=== PATIENT | female | born 1950 | race Caucasian/White ===

== ENCOUNTER → 2018-05-13 08:21 | Outpatient (CLI) | payer MEDICARE, SELFPAY ==
--- NOTE | 2018-05-13 | DI.MG.S_ITS ---
BILATERAL DIGITAL SCREENING MAMMOGRAM 3D/2D WITH CAD: 05/13/2018 CLINICAL: Routine screening. Family history of breast cancer. Comparison is made to exams dated: 04/29/2017 mammogram, 04/16/2016 mammogram, and 04/11/2015 mammogram - [facility]. There are scattered fibroglandular elements in both breasts. Current study was also evaluated with a Computer Aided Detection (CAD) system. No significant masses, calcifications, or other findings are seen in either breast. There has been no significant interval change. IMPRESSION: NEGATIVE There is no mammographic evidence of malignancy. A 1 year screening mammogram is recommended. This exam was interpreted at Station ID: [id number]. NOTE: For mammograms, a report in lay terms will be sent to the patient. Approximately 15% of breast malignancies will not be visualized mammographically. In the management of a palpable breast mass, a negative mammogram must not discourage biopsy of a clinically suspicious lesion. Electronically Signed By: Ashish [email or web address]:05/14/2018 16:48:19 letter sent: Normal Exam ACR BI-RADS Category 1: Negative 3341F
== END ==
PROVIDERS: Visit Provider Family Medicine
DX: Z80.3 Family history of malignant neoplasm of breast (principal)
CPT/HCPCS: 77063; 77067

== ENCOUNTER 2019-04-06 08:42 | Day surgery (SDC) | payer MEDICARE, SELFPAY ==
[2019-04-06] MEDS: SODIUM CHLORIDE 0.9% 1,000 ML 200 ML IV (09:00)
[2019-04-06 09:05] VITALS: BP 126/93; PULSE 87; RESP 16; TEMP 36.6; O2SAT 100; BMI 24.2
--- NOTE | 2019-04-06 10:30 | PM.HP.1 ---
History of Present Illness Date Patient Seen: 04/06/19 Time Patient Seen: 10:30 Chief complaint: [id number] Narrative: The patient is a woman here for a screening colonoscopy. This is her 1st exam. Patient History Medical History (Updated 04/06/19 @ 10:31 by Nabor Kothari MD) Glaucoma (Chronic) Surgical History (Updated 04/06/19 @ 10:31 by Nabor Kothari MD) H/O tubal ligation (Acute) Family History Father Melanoma Atrial fibrillation Mother Breast cancer Stroke Atrial fibrillation Grandmother Diabetes mellitus Sister Age: 65 [place] Social History household members: spouse Family & Social History Family History Father Melanoma Atrial fibrillation Mother Breast cancer Stroke Atrial fibrillation Grandmother Diabetes mellitus Sister Age: 65 [place] Social History: household members spouse Meds Home Medications Medication Instructions Recorded Confirmed Type CALCIUM CARBONATE/VITAMIN D3 1 tab PO Q DAY #0 03/20/11 04/06/19 History (Calcium 500 + D Tablet) Fish Oil 3,000 mg PO Q DAY #0 03/20/11 04/06/19 History Lutein (#LUTEIN) 20 mg PO Q DAY #0 03/20/11 04/06/19 History fluticasone propionate 2 spray INTRANASAL QDAY #16 gm 04/30/17 04/06/19 Rx prednisone 20 mg PO BID #10 tab 05/01/17 04/06/19 Rx Allergies Allergy/AdvReac Type Severity Reaction Status Date / Time ENVIRONMENTAL ALLERGIES Allergy Mild NASAL Uncoded 04/06/19 09:06 RHINITIS, SNEEZING, POST NASAL DRIP Review of Systems Review of Systems All systems reviewed & are unremarkable except as noted in HPI and below Eyes Comments: Uses eyedrops for glaucoma Exam Vital Signs (past 8 hours): - 04/06/19 09:05 Temperature 97.9 F Pulse Rate 87 Respiratory Rate 16 Blood Pressure 126/93 H Pulse Oximetry 100 Oxygen Delivery Method Room Air Narrative Exam Narrative: Pleasant cooperative patient no apparent distress. Lungs are clear to auscultation. No rales or rhonchi. Heart regular rate and rhythm no murmur gallop. Abdomen is soft nontender without mass. No obvious hernias. Patient is alert and oriented x3. Assessment & Plan Assessment & Plan narrative: The patient for a screening colonoscopy. I have discussed the procedure with them. Risks of bleeding, perforation which would necessitate major operation, failure to find remove all lesions, the potential tattoo were all discussed. All questions were answered. They wished to proceed.
--- NOTE | 2019-04-06 10:46 | PM.PREOP ---
Pre-operative Note Interval Note History & Physical reviewed/Exam performed by Physician: Yes Changes to H&P: No ASA Class (for procedural sedation): I
--- NOTE | 2019-04-06 10:54 | SUR.OPER ---
GLASSES TO PACU IN LABELED BAG WITH PATIENT
[2019-04-06] MEDS: MIDAZOLAM 5 MG/5 ML VIAL IV (10:56)
[2019-04-06] MEDS: fentaNYL 250 MCG/5 ML INJ IV (10:57)
[2019-04-06 11:19] VITALS: BP 91/61; PULSE 70; RESP 11; TEMP 36.1; O2SAT 98
--- NOTE | 2019-04-06 11:20 | PM.OP.ENDO ---
Operative Date/Time/Diagnoses Date of procedure: 04/06/19 Time of procedure: 11:20 Pre-op diagnosis: Screening exam. This is her 1st colonoscopy. Post-op diagnosis: same (Sigmoid diverticulosis. Skin tag of the anus.) Procedure & Clinicians Study performed: Colonoscopy Same procedure as scheduled: Yes Indications: Screening for colon cancer Surgeon: Nabor Kothari Procedure Notes SCOAP/Timeout: Performed Procedure in detail: The patient was placed in the left lateral decubitus position and underwent IV sedation directed by the surgeon consisting of fentanyl and Versed. Digital exam was[]. The scope was inserted and advanced through the rectum into the sigmoid, descending, transverse, and ascending colon.[]. The cecum was reached identified by the ileocecal valve and the appendiceal opening. The ileocecal valve was[] cannulated. The terminal ileum was normal in appearance. The scope was gradually brought out. Polyps were found at[]. The scope ultimately was retroflexed in the rectum. The appearance was[]. The scope was removed and the patient tolerated the procedure well. Scope withdrawal time: 9.5 minutes Sedation minutes: 25 Findings: diverticulosis (Sigmoid) Specimen(s): none sent Complications: none Recommendations: Colonscopy in 10 years Follow up: as needed Disposition: PACU
[2019-04-06 11:24] VITALS: BP 98/67; PULSE 71; RESP 11; O2SAT 98
[2019-04-06 11:29] VITALS: BP 99/61; PULSE 87; RESP 15; O2SAT 98
[2019-04-06 11:47] VITALS: BP 120/69; PULSE 86; RESP 16; O2SAT 98
== END 2019-04-06 11:48 | disposition home or self-care (01) ==
PROVIDERS: PCP Nurse Practitioner Family; Visit Provider Specialist
PROC: 0DJD8ZZ Inspection of Lower Intestinal Tract, Via Natural or Artificial Opening Endoscopic (ICD-10-PCS; CPT 45378; principal; 2019-04-06 09:45)
DX: Z12.11 Encounter for screening for malignant neoplasm of colon (principal); K57.30 Diverticulosis of large intestine without perforation or abscess without bleeding
CPT/HCPCS: G0121; 99152; J2250; J3010

== ENCOUNTER → 2019-06-30 08:59 | Outpatient (CLI) | payer MEDICARE, SELFPAY ==
--- NOTE | 2019-06-30 | DI.MG.S_ITS ---
BILATERAL DIGITAL SCREENING MAMMOGRAM 3D/2D WITH CAD: 06/30/2019 CLINICAL: Routine screening. Family history of breast cancer. Comparison is made to exams dated: 05/13/2018 mammogram, 04/29/2017 mammogram, 04/16/2016 mammogram, 04/11/2015 mammogram, 03/31/2014 mammogram, and 03/01/2013 mammogram - [facility]. There are scattered fibroglandular elements in both breasts. Current study was also evaluated with a Computer Aided Detection (CAD) system. No significant masses, calcifications, or other findings are seen in either breast. There has been no significant interval change. IMPRESSION: NEGATIVE There is no mammographic evidence of malignancy. A 1 year screening mammogram is recommended. This exam was interpreted at Station ID: [id number]. NOTE: For mammograms, a report in lay terms will be sent to the patient. Approximately 15% of breast malignancies will not be visualized mammographically. In the management of a palpable breast mass, a negative mammogram must not discourage biopsy of a clinically suspicious lesion. Electronically Signed By: Tanner [email or web address]:06/30/2019 19:34:37 letter sent: Normal Exam ACR BI-RADS Category 1: Negative 3341F
== END ==
PROVIDERS: PCP Nurse Practitioner Family; Visit Provider Nurse Practitioner Family
DX: Z12.31 Encounter for screening mammogram for malignant neoplasm of breast (principal); Z80.3 Family history of malignant neoplasm of breast
CPT/HCPCS: 77063; 77067

== ENCOUNTER → 2020-07-05 09:02 | Outpatient (CLI) | payer MEDICARE, SELFPAY ==
--- NOTE | 2020-07-05 09:16 | DI.MG.S_ITS ---
Patient Name: ANDIE CHOWDARY date: 1950 Sex: F Attending Physician: Antonio Indications: Date: 07/05/2020 09:10 At the request of: WAYNE WELCH Procedure: MM screening mammo BI BILATERAL DIGITAL SCREENING MAMMOGRAM 3D/2D WITH CAD: 07/05/2020 CLINICAL: Routine screening. Family history of breast cancer. Comparison is made to exams dated: 06/30/2019 mammogram, 05/13/2018 mammogram, and 04/29/2017 mammogram - [facility]. There are scattered fibroglandular elements in both breasts. Current study was also evaluated with a Computer Aided Detection (CAD) system. No significant masses, calcifications, or other findings are seen in either breast. There has been no significant interval change. IMPRESSION: NEGATIVE There is no mammographic evidence of malignancy. A 1 year screening mammogram is recommended. This exam was interpreted at Station ID: [id number]. NOTE: For mammograms, a report in lay terms will be sent to the patient. Approximately 15% of breast malignancies will not be visualized mammographically. In the management of a palpable breast mass, a negative mammogram must not discourage biopsy of a clinically suspicious lesion. Electronically Signed By: Brian Coronel M.D., [email or web address]/[email or web address]:07/05/2020 09:26:07 letter sent: Normal Exam ACR BI-RADS Category 1: Negative 3341F
== END ==
PROVIDERS: PCP Nurse Practitioner Family; Referring Provider Nurse Practitioner Family; Visit Provider Nurse Practitioner Family
DX: Z12.31 Encounter for screening mammogram for malignant neoplasm of breast (principal); Z80.3 Family history of malignant neoplasm of breast
CPT/HCPCS: 77063; 77067

== ENCOUNTER → 2021-09-29 08:35 | Outpatient (CLI) | payer MEDICARE, SELFPAY ==
--- NOTE | 2021-09-29 08:38 | DI.MG.S_ITS ---
BILATERAL DIGITAL SCREENING MAMMOGRAM 3D/2D WITH CAD: 09/29/2021 CLINICAL: Routine screening. Family history of breast cancer. Comparison is made to exams dated: 07/05/2020 mammogram, 06/30/2019 mammogram, and 05/13/2018 mammogram - [facility]. There are scattered fibroglandular elements in both breasts. Current study was also evaluated with a Computer Aided Detection (CAD) system. No significant masses, calcifications, or other findings are seen in either breast. There has been no significant interval change. IMPRESSION: NEGATIVE There is no mammographic evidence of malignancy. A 1 year screening mammogram is recommended. This exam was interpreted at Station ID: [id number]. NOTE: For mammograms, a report in lay terms will be sent to the patient. Approximately 15% of breast malignancies will not be visualized mammographically. In the management of a palpable breast mass, a negative mammogram must not discourage biopsy of a clinically suspicious lesion. Electronically Signed By: Deshawn [email or web address]/[email or web address]:10/01/2021 07:34:18 letter sent: Normal Exam ACR BI-RADS Category 1: Negative 3341F
== END ==
PROVIDERS: PCP Nurse Practitioner Family; Referring Provider Nurse Practitioner Family; Visit Provider Nurse Practitioner Family
DX: Z12.31 Encounter for screening mammogram for malignant neoplasm of breast (principal); Z80.3 Family history of malignant neoplasm of breast
CPT/HCPCS: 77063; 77067

== ENCOUNTER → 2023-02-19 08:46 | Outpatient (CLI) | payer MEDICARE, SELFPAY ==
--- NOTE | 2023-02-19 | DI.MG.S_ITS ---
BILATERAL DIGITAL SCREENING MAMMOGRAM 3D/2D WITH CAD: 02/19/2023 CLINICAL: Routine screening. Family history of breast cancer. Comparison is made to exams dated: 09/29/2021 mammogram, 07/05/2020 mammogram, and 06/30/2019 mammogram - [facility]. There are scattered areas of fibroglandular density in both breasts (category b / 25%-50% glandular tissue). Current study was also evaluated with a Computer Aided Detection (CAD) system. There are benign calcifications in both breasts. No significant masses, calcifications, or other findings are seen in either breast. There has been no significant interval change. IMPRESSION: BENIGN There is no mammographic evidence of malignancy. A 1 year screening mammogram is recommended. Based on the Tyrer Cuzick model (a risk assessment model) the patient's lifetime risk is 12.3% and her 10 year risk is 9.3%. According to the ACR, ACS, and NCCN guidelines, an annual breast MRI exam along with mammogram is recommended if the patient's lifetime risk is 20% or greater. This exam was interpreted at Station ID: [id number]. NOTE: For mammograms, a report in lay terms will be sent to the patient. Approximately 15% of breast malignancies will not be visualized mammographically. In the management of a palpable breast mass, a negative mammogram must not discourage biopsy of a clinically suspicious lesion. Electronically Signed By: Jay [email or web address]:02/19/2023 15:00:51 letter sent: Normal Exam ACR BI-RADS Category 2: Benign Finding(s) 3342F
== END ==
PROVIDERS: PCP Nurse Practitioner Family; Referring Provider Nurse Practitioner Family; Visit Provider Nurse Practitioner Family
DX: Z12.31 Encounter for screening mammogram for malignant neoplasm of breast (principal); Z80.3 Family history of malignant neoplasm of breast
CPT/HCPCS: 77063; 77067

== ENCOUNTER 2023-05-27 08:06 | Emergency (ER) | payer MEDICARE, SELFPAY ==
[2023-05-27 08:30] VITALS: BP 171/92; PULSE 90; RESP 18; TEMP 36.7; O2SAT 100; BMI 23.5
[2023-05-27 08:48] VITALS: BP 167/93; PULSE 86; O2SAT 100
--- NOTE | 2023-05-27 08:51 | DI.CT.S_ITS ---
PROCEDURE: CT HEAD/BRAIN WO CON INDICATIONS: peggy, started April, no prior history. TECHNIQUE: Noncontrast 4.5 mm thick angled axial sections acquired from the foramen magnum to the vertex, with coronal and sagittal reformats. For radiation dose reduction, the following was used: automated exposure control, adjustment of mA and/or kV according to patient size. COMPARISON: None. FINDINGS: CSF spaces: Basal cisterns are patent. No extra-axial fluid collections. The ventricles are symmetric in size and shape. Brain: No intracranial bleeds or masses. There is cerebral volume loss for age, with resultant ventricular and sulcal prominence. There are periventricular and deep white matter chronic small vessel ischemic changes. There is intracranial internal carotid artery atherosclerosis. Skull and face: Calvarium and visualized facial bones appear intact, without suspicious lesions. Sinuses: Minimal mucoperiosteal thickening right maxillary sinus, otherwise Visualized sinuses and mastoids are clear. IMPRESSION: No intracranial hemorrhage or other acute intracranial abnormality. Dictated by: Rei Rendon M.D. on 05/27/2023 at 9:25 Approved by: Rei Rendon M.D. on 05/27/2023 at 9:34
--- NOTE | 2023-05-27 09:13 | PC.NURSE ---
Pt arrives with son, Rei. Pt had a significant change in mental status on May 12, 2023. Pt lives with her and [id number] on [address]. 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 Pt has no hx of mental health issues and up until May 12 had been AOx4, independent and high functioning. Since May 12 pt has been talking incessantly, not eating regularly, not sleeping and confused.
--- NOTE | 2023-05-27 09:33 | ED_ITS ---
HPI - Altered Mental Status <Michelle Rodríguez DO - Last Filed: 05/29/23 08:12> General Chief Complaint: Altered Mental Status Stated Complaint: manic state/ anxiety/ confused Time Seen by Provider: 05/27/23 08:49 Source: patient and family (son) Mode of arrival: Ambulatory Limitations: no limitations History of Present Illness HPI narrative: This is 72-year-old female with history of hypertension, glaucoma who had reportedly mild depressive symptoms in the last several months and then in April had a significant change in her demeanor. Family describes her as manic. Patient does have pressured speech somewhat tangential. She is conversant. Patient denies any major issues. She is accompanied by her son. She saw a provider on [place] where she lives recommended she have evaluation. She went to her ophthalmology appointment for CT have extra injury today and was told she needed to be seen before they would perform her surgery. Patient denies headaches, no fevers or chills. No chest pain no shortness of breath, no nausea or vomiting no other GI or urinary symptoms such as diarrhea, constipation no dysuria urgency or frequency. No swelling in extremities. No changes with movement. Patient states no prior surgeries. No known drug allergies. No tobacco, a small sip of alcohol nightly according to patient and family. No recreational drugs. She states she smoked pot once when she found out she is with her younger son. She follows with Toña Alvarez. Has not had similar issues in the past. Related Data Home Medications Medication Instructions Recorded Confirmed CALCIUM CARBONATE/VITAMIN D3 1 tab PO Q DAY ##0 03/20/11 04/06/19 (Calcium 500 + D Tablet) Fish Oil 3,000 mg PO Q DAY ##0 03/20/11 04/06/19 Lutein (#LUTEIN) 20 mg PO Q DAY ##0 03/20/11 04/06/19 Previous Rx's Medication Instructions Recorded fluticasone propionate 50 2 spray intranasal QDAY ##16 04/30/17 mcg/actuation nasal spray,suspension prednisone 20 mg tablet 20 mg PO BID #10 tabs 05/01/17 Allergies Allergy/AdvReac Type Severity Reaction Status Date / Time ENVIRONMENTAL ALLERGIES Allergy Mild NASAL Uncoded 04/06/19 09:06 RHINITIS, SNEEZING, POST NASAL DRIP Review of Systems <Michelle Rodríguez DO - Last Filed: 05/29/23 08:12> Review of Systems ROS Unobtainable: All systems reviewed & are unremarkable except as noted in HPI and below Patient History <DO Rosalie Bales Last Filed: 05/29/23 08:12> Medical History Glaucoma Surgical History H/O tubal ligation Family History Father Melanoma Atrial fibrillation Mother Breast cancer Stroke Atrial fibrillation Grandmother Diabetes mellitus Sister Age: 70 Polio Social History household members: spouse Smoking Status: Never smoker Smoking Status: Never smoker alcohol intake frequency: holidays/special occasions only Substance Use Type: does not use Exam <DO Rosalie Bales Last Filed: 05/29/23 08:12> Narrative Exam Narrative: GENERAL: Alert and oriented x three, elderly female in mild distress. Patient is well dressed but pressured speech. HEENT: Head normocephalic, atraumatic, EOMI, pupils reactive, face symmetric, moist mucous membranes NECK: Supple, full range of motion CARDIOVASCULAR: Regular rate and rhythm without murmurs, rubs or gallops. RESPIRATORY: Breath sounds equal bilaterally, no wheezes rales or rhonchi. ABDOMEN: Soft, nontender. Normoactive bowel sounds all 4 quadrants. No guarding or rebound, rigidity, no mass : No CVA tenderness EXTREMITIES: Normal range of motion, no clubbing or edema. Neurovascularly intact NEUROLOGICAL: Cranial nerves II through XII grossly intact. Moving all extremities SKIN: Warm, dry, no petechiae, no rashes or lesions. PSYCH: Patient denies SI, HI, depression or manic symptoms. She has pressured speech. Tangential speech. No reported hallucinations. Initial Vital Signs Initial Vital Signs: Vital Signs Temperature 98.1 F 05/27/23 08:30 Pulse Rate 90 05/27/23 08:30 Respiratory Rate 18 05/27/23 08:30 Blood Pressure 171/92 H 05/27/23 08:30 Pulse Oximetry 100 05/27/23 08:30 Oxygen Delivery Method Room Air 05/27/23 08:30 <Alejandra Norton DO - Last Filed: 05/28/23 06:09> Initial Vital Signs Initial Vital Signs: Vital Signs Temperature 98.1 F 05/27/23 08:30 Pulse Rate 90 05/27/23 08:30 Respiratory Rate 18 05/27/23 08:30 Blood Pressure 171/92 H 05/27/23 08:30 Pulse Oximetry 100 05/27/23 08:30 Oxygen Delivery Method Room Air 05/27/23 08:30 Course <Michelle Rodríguez DO - Last Filed: 05/29/23 08:12> Orders Ordered: Discontinued Medications Risperidone (Risperidone 1 Mg Tablet) 1 mg PO NOW ONE Stop: 05/27/23 13:52 Last Admin: 05/27/23 14:05 Dose: 1 mg Documented By: YEMI Risperidone (Risperidone 1 Mg Tablet) 1 mg PO BID [facility] Last Admin: 05/27/23 21:40 Dose: 1 mg Documented By: DAWN Vital Signs Vital signs: Vital Signs - 8 hr 05/28/23 05:52 05/28/23 05:52 Pulse Rate 92 H Blood Pressure 137/81 Pulse Oximetry 91 <Alejandra Norton DO - Last Filed: 05/28/23 06:09> Orders Ordered: Discontinued Medications Risperidone (Risperidone 1 Mg Tablet) 1 mg PO NOW ONE Stop: 05/27/23 13:52 Last Admin: 05/27/23 14:05 Dose: 1 mg Documented By: YEMI Risperidone (Risperidone 1 Mg Tablet) 1 mg PO BID [facility] Last Admin: 05/27/23 21:40 Dose: 1 mg Documented By: DAWN Vital Signs Vital signs: Vital Signs - 8 hr 05/28/23 05:52 05/28/23 05:52 Pulse Rate 92 H Blood Pressure 137/81 Pulse Oximetry 91 MDM - Altered Mental Status <Michelle Rodríguez DO - Last Filed: 05/29/23 08:12> Lab Data 05/27/23 09:50 05/27/23 09:50 Labs: Lab Results 05/27/23 05/27/23 05/27/23 Range/Units 09:10 09:10 09:50 WBC (4.5-11.0) X10^3/uL RBC (4.0-5.2) X10^6/uL Hgb (12.0-16.0) g/dL Hct (36-46) % MCV (80-100) fL MCH (26-34) PG MCHC (30-36) % RDW (11.6-14.8) % Plt Count (150-400) X10^3/uL Neut % (Auto) (50-75) % Lymph % (Auto) (25-40) % [place] % (Auto) (3-14) % Eos % (Auto) (2-4) % Baso % (Auto) (0-2) % Neut # (Auto) (4909-7709) /uL Lymph # (Auto) (3703-5950) /uL [place] # (Auto) (0-900) /uL Eos # (Auto) (0-450) /uL Baso # (Auto) (0-100) /uL Sodium (137-145) mmol/L Potassium (3.4-5.1) mmol/L Chloride (98-107) mmol/L Carbon Dioxide (22-32) mmol/L BUN (7-17) mg/dL Creatinine (0.52-1.04) mg/dL Estimated GFR (>60) mL/min BUN/Creatinine Ratio (6-22) Glucose (80-110) mg/dL Calcium (8.4-10.2) mg/dL Total Bilirubin (0.2-1.3) mg/dL AST (14-36) IU/L ALT (<35) IU/L Alkaline Phosphatase (38-126) U/L Total Protein (6.3-8.2) g/dL Albumin (3.5-5.0) g/dL Globulin (1.7-4.1) g/dL Albumin/Globulin Ratio (1.0-2.8) TSH 1.58 (0.47-4.68) uIU/mL Urine Color Yellow Urine Appearance Clear Urine pH 7.0 (4.5-8.0) Ur Specific [place] <=1.005 (1.000-1.035) Urine Protein Negative (Negative) Urine Glucose (UA) Negative (Negative) g/dL Urine Ketones Negative (NEGATIVE) Urine Occult Blood Negative (Negative) Urine Nitrate Negative (Negative) Urine Bilirubin Negative (NEGATIVE) Urine Urobilinogen 0.2 (0.2) E.U./dL Ur Leukocyte Esterase Negative (NEGATIVE) Urine RBC None seen (0-5/HPF) Urine WBC None seen (0-5/HPF) Ur Squamous Epith Cells None seen (0-5/HPF) Urine Bacteria None seen (None) Ur Culture Indicated? Cult not indicated U Opiates 300ng/mL cut Negative (Negative) Ur Oxycodone Screen Negative (Negative) Urine Methadone Screen Negative (Negative) Ur Barbiturates Screen Negative (Negative) U Tricyclic Antidepress Negative (Negative) Ur Phencyclidine Scrn Negative (Negative) Ur Amphetamines Screen Negative (Negative) U Methamphetamines Scrn Negative (Negative) Ur MDMA Scrn (Ecstasy) Negative (Negative) U Benzodiazepines Scrn Negative (Negative) Urine Cocaine Screen Negative (Negative) U Marijuana (THC) Screen Negative (Negative) Ethyl Alcohol ( - 10) mg/dL SARS-CoV-2 (PCR) (Negative) 05/27/23 05/27/23 05/27/23 Range/Units 09:50 09:50 14:00 WBC 5.8 (4.5-11.0) X10^3/uL RBC 3.81 L (4.0-5.2) X10^6/uL Hgb 12.8 (12.0-16.0) g/dL Hct 37.1 (36-46) % MCV 97.3 (80-100) fL MCH 33.7 (26-34) PG MCHC 34.6 (30-36) % RDW 13.6 (11.6-14.8) % Plt Count 303 (150-400) X10^3/uL Neut % (Auto) 49.6 L (50-75) % Lymph % (Auto) 39.5 (25-40) % [place] % (Auto) 8.0 (3-14) % Eos % (Auto) 1.6 L (2-4) % Baso % (Auto) 1.3 (0-2) % Neut # (Auto) 2900 (3944-9922) /uL Lymph # (Auto) 2300 (6173-8260) /uL [place] # (Auto) 500 (0-900) /uL Eos # (Auto) 100 (0-450) /uL Baso # (Auto) 100 (0-100) /uL Sodium 139 (137-145) mmol/L Potassium 4.0 (3.4-5.1) mmol/L Chloride 102 (98-107) mmol/L Carbon Dioxide 29 (22-32) mmol/L BUN 17 (7-17) mg/dL Creatinine 0.69 (0.52-1.04) mg/dL Estimated GFR > 60 (>60) mL/min BUN/Creatinine Ratio 24.6 H (6-22) Glucose 104 (80-110) mg/dL Calcium 9.7 (8.4-10.2) mg/dL Total Bilirubin 1.2 (0.2-1.3) mg/dL AST 31 (14-36) IU/L ALT 63 H (<35) IU/L Alkaline Phosphatase 108 (38-126) U/L Total Protein 7.6 (6.3-8.2) g/dL Albumin 4.4 (3.5-5.0) g/dL Globulin 3.2 (1.7-4.1) g/dL Albumin/Globulin Ratio 1.4 (1.0-2.8) TSH (0.47-4.68) uIU/mL Urine Color Urine Appearance Urine pH (4.5-8.0) Ur Specific [place] (1.000-1.035) Urine Protein (Negative) Urine Glucose (UA) (Negative) g/dL Urine Ketones (NEGATIVE) Urine Occult Blood (Negative) Urine Nitrate (Negative) Urine Bilirubin (NEGATIVE) Urine Urobilinogen (0.2) E.U./dL Ur Leukocyte Esterase (NEGATIVE) Urine RBC (0-5/HPF) Urine WBC (0-5/HPF) Ur Squamous Epith Cells (0-5/HPF) Urine Bacteria (None) Ur Culture Indicated? U Opiates 300ng/mL cut (Negative) Ur Oxycodone Screen (Negative) Urine Methadone Screen (Negative) Ur Barbiturates Screen (Negative) U Tricyclic Antidepress (Negative) Ur Phencyclidine Scrn (Negative) Ur Amphetamines Screen (Negative) U Methamphetamines Scrn (Negative) Ur MDMA Scrn (Ecstasy) (Negative) U Benzodiazepines Scrn (Negative) Urine Cocaine Screen (Negative) U Marijuana (THC) Screen (Negative) Ethyl Alcohol < 10 ( - 10) mg/dL SARS-CoV-2 (PCR) Negative (Negative) Urine Dip Bedside Urine Glucose Negative Bedside Urine Bilirubin - Negative Bedside Urine Ketone - Negative Urine Specific [place] 1.005 Bedside Urine Occult Blood - Negative Bedside Urine pH 7.0 Bedside Urine Protein - Negative Bedside Urine Urobilinogen - Negative Bedside Urine Nitrite - Negative Bedside Urine Leukocytes - Negative Esterase Imaging Data CT scan - head: Radiologist's Impression: Close Head CT (Signed) Rei Rendon - 05/27/23 Mammogram Screening (Signed) Jay Obrien - 02/19/23 Mammogram Screening (Signed) RomanaDeshawn - 09/29/21 Mammogram Screening (Signed) Brian Coronel - 07/05/20 Mammogram Screening (Signed) Tanner Quigley - 06/30/19 Telemetry Strips 04/06/19 Mammogram Screening (Signed) Keo King - 05/13/18 Launch?[place] [address] CT Scan Report Signed Patient: Denice Young MR#: [id number] : 1950 Acct:[id number] Age/Sex: 72 / F Date of Service: 05/27/23 Loc: ED Accession Number: [id number] ?? Procedure: CT head/brain wo con Ordering Provider: Michelle Rodríguez D.O. PROCEDURE:? CT HEAD/BRAIN WO CON ? INDICATIONS:? peggy, started April, no prior history. ? TECHNIQUE:? Noncontrast 4.5 mm thick angled axial sections acquired from the foramen magnum to the vertex, with coronal and sagittal reformats.? For radiation dose reduction, the following was used:? automated exposure control, adjustment of mA and/or kV according to patient size.? ? COMPARISON:? None. ? FINDINGS:? ? CSF spaces:? Basal cisterns are patent.? No extra-axial fluid collections.? The ventricles are symmetric in size and shape.? ? Brain:? No intracranial bleeds or masses.? There is cerebral volume loss for a ge, with resultant ventricular and sulcal prominence.? There are periventricular and deep white matter chronic small vessel ischemic changes.? There is intracranial internal carotid artery atherosclerosis.? ? Skull and face:? Calvarium and visualized facial bones appear intact, without suspicious lesions.? ? Sinuses:? Minimal mucoperiosteal thickening right maxillary sinus, otherwise Visualized sinuses and mastoids are clear.? ? IMPRESSION:? No intracranial hemorrhage or other acute intracranial abnormality. ? ? Dictated by: Rei Rendon M.D. on 05/27/2023 at 9:25 ? ? Approved by: Rei Rendon M.D. on 05/27/2023 at 9:34?? ECG Data Attestation: I personally reviewed and interpreted this ECG as follows: Interpretation: Sinus rhythm rate of 78 WV 126 QRS 86 and QTC 442. No acute ST changes noted. MDM Narrative Medical decision making narrative: 72-year-old female who is had some recent depressive symptoms but had s ignificant change to her demeanor and is sent for manic type behavior. Patient does have pressured tangential speech. She does not appear to be hallucinating in anyway no SI or HI is reported. The sounds like a significant change from her normal baseline in the past month. Victor appropriate for further medical workup including labs, head CT, EKG and urine. No drug ingestions reported. Patient reportedly drinks a small amount of alcohol each day but describes it as several sips and family correlates making alcohol withdrawal unlikely and patient does not have other symptoms consistent with this. No other acute neurologic changes reported. UDS is negative urine is negative for infection head CT is negative. Labs show no clear cause of patient's symptoms. Son states she has been having some low-lying depression sounds like it has been untreated with medications for several months. She does live with her but was doing more of their caregiving. He does not appreciate any hallucinations but states she does seem to have delusions she thinks she is going to be in a movie. Patient is medically cleared with no other cause found for her peggy today. Patient met with APARTMENT RENTAL CLERK. She is agreeable to take a dose of oral medication. This time is agreeable for voluntary placement which I think is appropriate. <Alejandra Norton, DO - Last Filed: 05/28/23 06:09> Lab Data Labs: Lab Results 05/27/23 05/27/23 05/27/23 Range/Units 09:10 09:10 09:50 WBC (4.5-11.0) X10^3/uL RBC (4.0-5.2) X10^6/uL Hgb (12.0-16.0) g/dL Hct (36-46) % MCV (80-100) fL MCH (26-34) PG MCHC (30-36) % RDW (11.6-14.8) % Plt Count (150-400) X10^3/uL Neut % (Auto) (50-75) % Lymph % (Auto) (25-40) % [place] % (Auto) (3-14) % Eos % (Auto) (2-4) % Baso % (Auto) (0-2) % Neut # (Auto) (7987-3243) /uL Lymph # (Auto) (9496-6690) /uL [place] # (Auto) (0-900) /uL Eos # (Auto) (0-450) /uL Baso # (Auto) (0-100) /uL Sodium (137-145) mmol/L Potassium (3.4-5.1) mmol/L Chloride (98-107) mmol/L Carbon Dioxide (22-32) mmol/L BUN (7-17) mg/dL Creatinine (0.52-1.04) mg/dL Estimated GFR (>60) mL/min BUN/Creatinine Ratio (6-22) Glucose (80-110) mg/dL Calcium (8.4-10.2) mg/dL Total Bilirubin (0.2-1.3) mg/dL AST (14-36) IU/L ALT (<35) IU/L Alkaline Phosphatase (38-126) U/L Total Protein (6.3-8.2) g/dL Albumin (3.5-5.0) g/dL Globulin (1.7-4.1) g/dL Albumin/Globulin Ratio (1.0-2.8) TSH 1.58 (0.47-4.68) uIU/mL Urine Color Yellow Urine Appearance Clear Urine pH 7.0 (4.5-8.0) Ur Specific [place] <=1.005 (1.000-1.035) Urine Protein Negative (Negative) Urine Glucose (UA) Negative (Negative) g/dL Urine Ketones Negative (NEGATIVE) Urine Occult Blood Negative (Negative) Urine Nitrate Negative (Negative) Urine Bilirubin Negative (NEGATIVE) Urine Urobilinogen 0.2 (0.2) E.U./dL Ur Leukocyte Esterase Negative (NEGATIVE) Urine RBC None seen (0-5/HPF) Urine WBC None seen (0-5/HPF) Ur Squamous Epith Cells None seen (0-5/HPF) Urine Bacteria None seen (None) Ur Culture Indicated? Cult not indicated U Opiates 300ng/mL cut Negative (Negative) Ur Oxycodone Screen Negative (Negative) Urine Methadone Screen Negative (Negative) Ur Barbiturates Screen Negative (Negative) U Tricyclic Antidepress Negative (Negative) Ur Phencyclidine Scrn Negative (Negative) Ur Amphetamines Screen Negative (Negative) U Methamphetamines Scrn Negative (Negative) Ur MDMA Scrn (Ecstasy) Negative (Negative) U Benzodiazepines Scrn Negative (Negative) Urine Cocaine Screen Negative (Negative) U Marijuana (THC) Screen Negative (Negative) Ethyl Alcohol ( - 10) mg/dL SARS-CoV-2 (PCR) (Negative) 05/27/23 05/27/23 05/27/23 Range/Units 09:50 09:50 14:00 WBC 5.8 (4.5-11.0) X10^3/uL RBC 3.81 L (4.0-5.2) X10^6/uL Hgb 12.8 (12.0-16.0) g/dL Hct 37.1 (36-46) % MCV 97.3 (80-100) fL MCH 33.7 (26-34) PG MCHC 34.6 (30-36) % RDW 13.6 (11.6-14.8) % Plt Count 303 (150-400) X10^3/uL Neut % (Auto) 49.6 L (50-75) % Lymph % (Auto) 39.5 (25-40) % [place] % (Auto) 8.0 (3-14) % Eos % (Auto) 1.6 L (2-4) % Baso % (Auto) 1.3 (0-2) % Neut # (Auto) 2900 (2294-2164) /uL Lymph # (Auto) 2300 (6679-1109) /uL [place] # (Auto) 500 (0-900) /uL Eos # (Auto) 100 (0-450) /uL Baso # (Auto) 100 (0-100) /uL Sodium 139 (137-145) mmol/L Potassium 4.0 (3.4-5.1) mmol/L Chloride 102 (98-107) mmol/L Carbon Dioxide 29 (22-32) mmol/L BUN 17 (7-17) mg/dL Creatinine 0.69 (0.52-1.04) mg/dL Estimated GFR > 60 (>60) mL/min BUN/Creatinine Ratio 24.6 H (6-22) Glucose 104 (80-110) mg/dL Calcium 9.7 (8.4-10.2) mg/dL Total Bilirubin 1.2 (0.2-1.3) mg/dL AST 31 (14-36) IU/L ALT 63 H (<35) IU/L Alkaline Phosphatase 108 (38-126) U/L Total Protein 7.6 (6.3-8.2) g/dL Albumin 4.4 (3.5-5.0) g/dL Globulin 3.2 (1.7-4.1) g/dL Albumin/Globulin Ratio 1.4 (1.0-2.8) TSH (0.47-4.68) uIU/mL Urine Color Urine Appearance Urine pH (4.5-8.0) Ur Specific [place] (1.000-1.035) Urine Protein (Negative) Urine Glucose (UA) (Negative) g/dL Urine Ketones (NEGATIVE) Urine Occult Blood (Negative) Urine Nitrate (Negative) Urine Bilirubin (NEGATIVE) Urine Urobilinogen (0.2) E.U./dL Ur Leukocyte Esterase (NEGATIVE) Urine RBC (0-5/HPF) Urine WBC (0-5/HPF) Ur Squamous Epith Cells (0-5/HPF) Urine Bacteria (None) Ur Culture Indicated? U Opiates 300ng/mL cut (Negative) Ur Oxycodone Screen (Negative) Urine Methadone Screen (Negative) Ur Barbiturates Screen (Negative) U Tricyclic Antidepress (Negative) Ur Phencyclidine Scrn (Negative) Ur Amphetamines Screen (Negative) U Methamphetamines Scrn (Negative) Ur MDMA Scrn (Ecstasy) (Negative) U Benzodiazepines Scrn (Negative) Urine Cocaine Screen (Negative) U Marijuana (THC) Screen (Negative) Ethyl Alcohol < 10 ( - 10) mg/dL SARS-CoV-2 (PCR) Negative (Negative) Urine Dip Bedside Urine Glucose Negative Bedside Urine Bilirubin - Negative Bedside Urine Ketone - Negative Urine Specific [place] 1.005 Bedside Urine Occult Blood - Negative Bedside Urine pH 7.0 Bedside Urine Protein - Negative Bedside Urine Urobilinogen - Negative Bedside Urine Nitrite - Negative Bedside Urine Leukocytes - Negative Esterase MDM Narrative Medical decision making narrative: 72-year-old female who is had some recent depressive symptoms but had significant change to her demeanor and is sent for manic type behavior. Patient does have pressured tangential speech. She does not appear to be hallucinating in anyway no SI or HI is reported. The sounds like a significant change from her normal baseline in the past month. Victor appropriate for further medical workup including labs, head CT, EKG and urine. No drug ingestions reported. Patient reportedly drinks a small amount of alcohol each day but describes it as several sips and family correlates making alcohol withdrawal unlikely and patikeegan t does not have other symptoms consistent with this. No other acute neurologic changes reported. UDS is negative urine is negative for infection head CT is negative. Labs show no clear cause of patient's symptoms. Son states she has been having some low-lying depression sounds like it has been untreated with medications for several months. She does live with her but was doing more of their caregiving. He does not appreciate any hallucinations but states she does seem to have delusions she thinks she is going to be in a movie. Patient is medically cleared with no other cause found for her peggy today. Patient met with APARTMENT RENTAL CLERK. She is agreeable to take a dose of oral medication. This time is agreeable for voluntary placement which I think is appropriate. Dr. Norton-patient signed out to me by Dr. Rodríguez. Awaiting transport for placement to [facility]. Patient has not had any complications or issues throughout the night. She has been cooperative without requiring any me dication. Discharge Plan Departure Patient Disposition: Xfer Psychiatric [facility]osp Clinical Impression: Manic behavior Prescriptions: No Action CALCIUM CARBONATE/VITAMIN D3 (Calcium 500 + D Tablet) 1 tab PO Q DAY Qty: 0 Fish Oil 3,000 mg PO Q DAY Qty: 0 Lutein (#LUTEIN) 20 mg PO Q DAY Qty: 0 fluticasone propionate 16 GM spray,suspension 2 spray Intranasal QDAY Qty: 16 2RF prednisone 20 MG tablet 20 mg PO BID Qty: 10 0RF Referrals: Toña Alvarez ARNP [Primary Care Provider] -
[2023-05-27 09:38] LABS: Appearance Urine UA CLEAR; Bilirubin Urine UA NEGATIVE (NEGATIVE); Color Urine UA YELLOW; Glucose Urine UA NEGATIVE (Negative); Ketones Urine UA NEGATIVE (NEGATIVE); Leukocyte Esterase Urine UA NEGATIVE (NEGATIVE); Nitrite Urine UA NEGATIVE (Negative); Occult Blood Urine UA NEGATIVE (Negative); Protein Urine UA NEGATIVE (Negative); Specific Gravity Urine UA <=1.005 (1.000-1.035); Urobilinogen Urine UA 0.2 E.U./dL (0.2)
[2023-05-27 09:44] LABS: UR Morphine/Opiate cutoff 300 Negative (Negative); Ur Creatinine Normal (Normal); Ur Specific Gravity Normal (Normal); Urine Amphetamines Negative (Negative); Urine Barbiturates Negative (Negative); Urine Benzodiazepines Negative (Negative); Urine Cocaine Negative (Negative); Urine MDMA Negative (Negative); Urine Methadone Negative (Negative); Urine Methamphetamines Negative (Negative); Urine Oxycodone Negative (Negative); Urine Phencyclidine Negative (Negative); Urine Tetrahydrocannabinol Negative (Negative); Urine Tricyclic Antidepressant Negative (Negative); Urine pH Normal (Normal)
[2023-05-27 09:53] LABS: Bacteria Urine None Seen; Culture Indicated Urine Cult Not Indicated; RBC Urine None Seen (0-5/HPF); Squamous Epithelial Cell Urine None Seen (0-5/HPF); WBC Urine None Seen (0-5/HPF)
[2023-05-27 09:59] LABS: Add Manual Diff / Slide Review NO; Basophils Absolute Auto 100 /uL (0-100); Basophils Percent Auto 1.3 % (0-2); Eosinophils Absolute Auto 100 /uL (0-450); Eosinophils Percent Auto 1.6 % (2-4); Hematocrit 37.1 % (36-46); Hemoglobin 12.8 g/dL (12.0-16.0); Lymphocytes Absolute Auto 2300 /uL (1100-4500); Lymphocytes Percent Auto 39.5 % (25-40); Mean Corpuscular HGB Conc 34.6 % (30-36); Mean Corpuscular Hemoglobin 33.7 PG (26-34); Mean Corpuscular Volume 97.3 fL (80-100); Monocytes Absolute Auto 500 /uL (0-900); Neutrophils Absolute Auto 2900 /uL (1500-7000); Neutrophils Percent Auto 49.6 % (50-75); Platelet Count 303 X10^3/uL (150-400); Red Blood Cell Count 3.81 X10^6/uL (4.0-5.2); Red Cell Distribution Width 13.6 % (11.6-14.8); White Blood Cell Count 5.8 X10^3/uL (4.5-11.0)
[2023-05-27 10:13] LABS: Alanine Aminotransferase 63 IU/L (<35); Albumin 4.4 g/dL (3.5-5.0); Albumin Globulin Ratio 1.4 (1.0-2.8); Alkaline Phosphatase 108 U/L (38-126); Aspartate Aminotransferase 31 IU/L (14-36); BUN Creatinine Ratio 24.6 (6-22); Bilirubin Total 1.2 mg/dL (0.2-1.3); Blood Urea Nitrogen 17 mg/dL (7-17); Calcium 9.7 mg/dL (8.4-10.2); Carbon Dioxide 29 mmol/L (22-32); Chloride 102 mmol/L (98-107); Estimated Glomerular Filt Rate > 60 mL/min (>60); Ethanol (ETOH) < 10 mg/dL; Globulin 3.2 g/dL (1.7-4.1); Glucose 104 mg/dL (80-110); HEMOLYSIS 20 (0-50); Sodium 139 mmol/L (137-145); Total Protein 7.6 g/dL (6.3-8.2)
[2023-05-27 11:16] LABS: TSH w/ Reflex to FT4 1.58 uIU/mL (0.47-4.68)
[2023-05-27] MEDS: risperiDONE 1 MG TABLET PO ×2 (14:05→21:40)
[2023-05-27 14:28] VITALS: BP 139/79; PULSE 85; O2SAT 99
--- NOTE | 2023-05-27 14:29 | CM.SWNOTE ---
OFFLINE CUTTER Assessment Note OFFLINE CUTTER - Swimmer Assessment OFFLINE CUTTER/Swimmer Assessment Time Spent with Patient Start date 05/27/23 Visit Start Time 12:50 End date 05/27/23 Visit End Time 13:35 Total time Care Management spent on 45 minutes patient visit-in minutes Mental Health Screening Include Onset, Duration, Intensity Presenting Problem Patient presents to ED with son due to family's concen for patient's new onset manic behavior. It is reported that patient has had hx of withdrawn mild depressive symptoms in recent months but in the last two weeks patient has presented with manic behavior. Patient presents with minimal insight but is aware of her need for relief and is voluntary for inpatient hospitalization. Precipitating Event(s) Son reports that patient's masseuse has noticed an increase in patient's depression in the last several months, son and family members endorse concern for rapid change in demeanor in last two weeks. Patient's son just returned home from working in [place] after several months. Patient has never had MH dx or hx of MH rx. 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 Patient was evaluated by PCP who recommended patient's need for MH evaluation due to concern for patient's change in behavior, patient was supposed to have eye surgery recently but they did not think it was suitable until patient's manic behavior is addressed. Patient Strengths Patient has supportive family and patient is seeking help. Current Behavioral Health Provider(s) No current provider Include Facility, Provider, Ph. # Psych. Hx Mental Health and Chemical No formal hx. Reported Dependency depression in last several months and recent onset peggy in last two weeks. Patient endorses hx of occasional ETOH use and hx of marijuana. Family Hx of Behavioral Abuse None reported Psychiatric Hospitalizations (date(s)/ No hx location) Psychosocial information & Support Patient is 72 y/o female who Systems resides in [place] with spouse of 50 years and sister in law. Patient has been caregiver for both of them. Patient has support from friends and family on [place]. School/Work Patient is a practicing residential property tax appraiser. Legal Concerns Legal Matters - Outstanding Issues None reported Mental Status Orientation (Person/Place/Time) A/Ox3 Stated Mood this is the weirdest day of my life. Affect (Congruent with Mood?) Loquacious pressured speech, elevated, anxious, labile, congruent with mood. Thought Content - Specify/Describe Patient denies visual or Obsessions, Delusions, Hallucinations auditory hallucinations. Patient denies paranoia. Patient adamantly denies delusions. Per ED provider patient was presenting with delusions that she was going to be in a movie. Thought Processes (Hojzlyd-Yxmpkzxk-Htvk tangential Rbsxbsyn-Swbuuope-Nefkrxpzvx- Thnzrelgknkztv-Zyqvytd-Btcoccnsmxxw- Thought Blocking) Speech (Xayuhe-Hpqx-Lcaimsv-Rapid-Soft- pressured, rapid Loud-Pressured) Motor (Fqmiza-Afbnzlfxp-Ovrl-Other) excessive, difficulty sitting still Insight (Diay-Skkp-Ucyh/Limited) fair/limited Judgement (Yxiv-Baje-Ynpp/Limited) fair/limited Impulse Control (Adequate-Impaired) adequate Memory (Vaxrwnqxp-Lprdlo-Rhjirh, intact, not formally assessed. Impaired-Intact) Patient presents with somewhat detailed stories from past but does not finish them . Concentration (Intact-Impaired) fairly intact Attention (Intact-Impaired) fairly intact Behavior (Appropriate-Inappropriate) appropriate, patient has difficulty not being sarcastic or answering questions with analogies. Additional Comment Patient presents as communicative and cooperative. Risk Assessment Suicidal Ideation (Plan) No Homicidal Ideation (Plan) No Intervention Intervention OFFLINE CUTTER enters room to meet with patient. Present in room is patient's son, patient gives consent for son to be present. Patient presents with manic behaviors,pressured speech, tangential, loquacious at times difficult to redirect. Patient states everything is wrong but has difficulty providing details. Per son, patient's behavior has dramatically changed two weeks ago after patient had an eye doctor appt, prior to that it was reported that patient was mildly depressed. Patient has no hx of formal dx or medication regarding mental health. At baseline patient was very independent, working caring for spouse and sister in law. Patient is a practicing senior tax accountant and detail oriented and organized at baseline. Currently, patient has been presenting with such high anxiety and peggy that patient has been altered and showing some difficulty managing tasks as usual. It is reported that patient's close family members, PCP, outpatient providers are all very concerned about patient's dramatic change in demeanor and recommend evaluation. Patient and family endorse that patient is voluntary for inpatient hospitalization. It is the opinion of this OFFLINE CUTTER that patient is presenting with manic behaviors. It is the opinion of this OFFLINE CUTTER that patient will benefit from and be appropriate for voluntary inpatient hospitalization for medication management and crisis stabilization. OFFLINE CUTTER reviews the above with ED provider Dr. Rodríguez who indicates agreement and understanding. Plan RA Plan OFFLINE CUTTER to seek voluntary inpatient bed for patient upon medical clearance CARMINE Tovar
[2023-05-27 14:30] VITALS: BP 139/79; PULSE 85; O2SAT 99
[2023-05-27 14:42] LABS: COVID19 -Nasal RAPID Negative (Negative)
[2023-05-27 18:09] VITALS: BP 170/90; PULSE 85; O2SAT 100
--- NOTE | 2023-05-27 19:46 | CM.SWNOTE ---
Addendum entered by Raisa Cruz 05/27/23 20:25: WINCH STRIPPER Note [facility] calls back and asks to speak with patient to inquire about patient's consent for voluntary placement. Intake speaks with patient and informs WINCH STRIPPER about concern for patient's insight and declines. WINCH STRIPPER receives call from [facility] and it is reported that they cannot accept patient tonight but to try back in AM if placement is still needed. WINCH STRIPPER receives call from [facility], it is reported by intake Maday that patient is accepted to the women's unit [facility] at 0800am tomorrow. Accepting provider is FERMÍN Mclean. STRATEGIC COMMUNICATIONS MANAGER to set up transport. Plan: patient to transfer to [facility] tomorrow AM for inpatient hospitalization. RN to call son regarding patient's acceptance. CARMINE Tovar Original Note: WINCH STRIPPER Note WINCH STRIPPER calls [facility], it is reported that they have beds and can review patient but accepting older adults is on a case by case basis. WINCH STRIPPER faxes clinicals for review. WINCH STRIPPER calls back [facility] and it is reported that they are full, but still reviewing. WINCH STRIPPER calls [facility], It is reported that they have beds and can review patient. WINCH STRIPPER faxes clinicals. [facility] calls back and reports that patient is declined due to need for neurocognitive work up. WINCH STRIPPER calls [facility], it is reported that they have beds and can review the patient. WINCH STRIPPER faxes clinicals for review. WINCH STRIPPER calls [facility], it is reported that they do not accept patients out of [facility]. WINCH STRIPPER calls [facility], it is reported that patient must have Medicare A +B as the current provider can only accept patient's with that insurance, it is recommended to try back tomorrow if patient is still in need of placement. WINCH STRIPPER calls [facility], it is reported that they are at capacity. WINCH STRIPPER calls [facility], it is reported that they have beds. WINCH STRIPPER faxes clinicals for review. Plan: Continue to seek inpatient bed for patient. [facility], [facility] and [facility] currently reviewing patient. Try [facility] if needed tomorrow AM. CARMINE Tovar
[2023-05-28 05:52] VITALS: BP 137/81; PULSE 92; O2SAT 91
--- NOTE | 2023-05-28 11:03 | PC.NURSE ---
Accessed chart to assist son Rei with phone inquiry about dispo
== END 2023-05-28 06:25 ==
PROVIDERS: Emergency Provider Emergency Medicine; PCP Nurse Practitioner Family
DX: F30.9 Manic episode, unspecified (principal); I10 Essential (primary) hypertension; Z20.822 Contact with and (suspected) exposure to COVID-19
CPT/HCPCS: 70450; 80053; 80305; 80320; 81001; 81003; 84443; 85025; 87635; 93005; 93010; 99283; 99284; C9803

== ENCOUNTER → 2024-02-10 08:40 | Outpatient (CLI) | payer MEDICARE, SELFPAY ==
--- NOTE | 2024-02-10 | DI.RAD.S_ITS ---
PROCEDURE: XR DEXA AXIAL SKELETON INDICATIONS: Asymptomatic menopausal state COMPARISON: [facility], MERRY, DEXA AXIAL SKELETON, 07/04/2016, 11:16. [facility], MERRY, DEXA AXIAL SKELETON, 10/18/2008, 10:00. FINDINGS: Lumbar Spine: Bone mineral density 0.763 g/cm2, T score -2.6. Left Hip: Bone mineral density 0.741 g/cm2, T score -1.7. Left Femoral Neck: Bone mineral density 0.636 g/cm2, T score -1.9. Right Hip: Bone mineral density 0.795 g/cm2, T score -1.2. Right Femoral Neck: Bone mineral density 0.654 g/cm2, T score -1.8. Fracture Risk Calculation (when applicable): Not provided due to osteoporosis. (T score greater or equal to -1.0 to: NORMAL) (T score from -1.1 to -2.4: OSTEOPENIA) (T score less than or equal to -2.5: OSTEOPOROSIS) IMPRESSION: 1. Lumbar spine osteoporosis. Dictated by: Tanner Quigley M.D. on 02/10/2024 at 19:52 Approved by: Tanner Quigley M.D. on 02/10/2024 at 19:54
== END ==
LOC: RAD 08:43
PROVIDERS: PCP Family Medicine; Referring Provider Family Medicine; Visit Provider Family Medicine
DX: Z78.0 Asymptomatic menopausal state (principal); Z13.820 Encounter for screening for osteoporosis; M81.0 Age-related osteoporosis without current pathological fracture
CPT/HCPCS: 77080

== ENCOUNTER → 2024-03-23 08:43 | Outpatient (CLI) | payer MEDICARE, SELFPAY ==
--- NOTE | 2024-03-23 08:44 | DI.MG.S_ITS ---
BILATERAL DIGITAL SCREENING MAMMOGRAM 3D/2D WITH CAD: 03/23/2024 CLINICAL: Routine screening. Family history of breast cancer. Comparison is made to exams dated: 02/19/2023 mammogram, 09/29/2021 mammogram, and 07/05/2020 mammogram - [facility]. There are scattered areas of fibroglandular density in both breasts (category b / 25%-50% glandular tissue). Current study was also evaluated with a Computer Aided Detection (CAD) system. There are benign calcifications in both breasts. No significant masses, calcifications, or other findings are seen in either breast. There has been no significant interval change. IMPRESSION: BENIGN There is no mammographic evidence of malignancy. A 1 year screening mammogram is recommended. Based on the Tyrer Cuzick model (a risk assessment model) the patient's lifetime risk is 11.6% and her 10 year risk is 9.5%. According to the ACR, ACS, and NCCN guidelines, an annual breast MRI exam along with mammogram is recommended if the patient's lifetime risk is 20% or greater. This exam was interpreted at Station ID: [id number]. NOTE: For mammograms, a report in lay terms will be sent to the patient. Approximately 15% of breast malignancies will not be visualized mammographically. In the management of a palpable breast mass, a negative mammogram must not discourage biopsy of a clinically suspicious lesion. Electronically Signed By: Deshawn [email or web address]/[email or web address]:03/23/2024 17:53:17 letter sent: Normal Exam ACR BI-RADS Category 2: Benign Finding(s) 3342F
== END ==
PROVIDERS: PCP Family Medicine; Referring Provider Family Medicine; Visit Provider Family Medicine
DX: Z12.31 Encounter for screening mammogram for malignant neoplasm of breast (principal); Z80.3 Family history of malignant neoplasm of breast; R92.323 Mammographic fibroglandular density, bilateral breasts
CPT/HCPCS: 77063; 77067

== ENCOUNTER → 2025-04-01 07:30 | Outpatient (CLI) | payer MEDICARE, SELFPAY ==
--- NOTE | 2025-04-01 07:31 | DI.MG.S_ITS ---
MM screening mammo BI: 04/01/2025. BI-RADS: 2 CLINICAL: 74-year old female for bilateral screening mammogram. Tyrer-Cuzick lifetime risk of 10.4%. Current reported family history of breast cancer: mother and sister. PRIOR EXAMS 03/23/2024, 02/19/2023, 09/29/2021, 07/05/2020, 06/30/2019, 05/13/2018, 04/29/2017, 04/16/2016, 04/11/2015. MAMMOGRAPHY TECHNIQUE: 2D and 3D (tomosynthesis) digital mammographic views obtained, with additional images as needed for full coverage. Current study was also evaluated with a Computer Aided Detection (CAD) system. DENSITY C. The breasts are heterogeneously dense, which may obscure small masses. MAMMOGRAPHY FINDINGS Bilateral: Benign-appearing calcifications noted. There are no suspicious masses, calcifications, or other findings in the breast. IMPRESSION: * No evidence of malignancy with benign findings. RECOMMENDATIONS Bilateral * Annual screening mammography. OVERALL ASSESSMENT CATEGORY BI-RADS-2: Benign. The [employer] recommends annual screening mammography beginning at age 40 for women with average risk of breast cancer. ELECTRONICALLY SIGNED: Nader Hu M.D. on 04/01/2025 at 09:32:20 AM PT Interpreting Station ID: [id number]
== END ==
LOC: MAMMO 07:31
PROVIDERS: PCP Family Medicine; Referring Provider Family Medicine; Visit Provider Family Medicine
DX: Z12.31 Encounter for screening mammogram for malignant neoplasm of breast (principal); Z80.3 Family history of malignant neoplasm of breast; R92.333 Mammographic heterogeneous density, bilateral breasts
CPT/HCPCS: 77063; 77067